=== PATIENT | male | born 1955 | race Caucasian/White ===

== ENCOUNTER 2016-06-17 16:29 | Emergency (ER) | payer OTHER, MEDICAID ==
[~2016-06-17] VITALS: Ht 170.2 cm; Wt 127.0 kg
[~2016-06-17 16:29] MED LIST: ASPIR 8181 M1 PO; BP MED; COREG3.125 MG PO; HUMALOG100 UNITS/ SUBQ; KLOR-CON 88 ME1 PO; LANTUS100 U/ML SUBQ; LASIX40 MG PO; LIPITOR40 MG PO; ZESTRIL5 MG PO
[2016-06-17] MEDS ORDERED: GLUCOPHAGE1000 MG PO (17:23)
[2016-06-17 17:25] VITALS: BP 149/74
--- NOTE | 2016-06-17 17:30 | NUR ---
PT AMBULATED TO ER BED06.
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
[2016-06-17] MEDS ORDERED: IBUPROFEN 800 MG TAB PO ONE (18:30)
[2016-06-17 19:00] VITALS: BP 143/86
== END 2016-06-17 19:02 | disposition home or self-care (01) ==
LOC: MED 16:29
DX: S13.9XXA Sprain of joints and ligaments of unspecified parts of neck, initial encounter (principal); E11.9 Type 2 diabetes mellitus without complications; I10 Essential (primary) hypertension; Z86.73 Personal history of transient ischemic attack (TIA), and cerebral infarction without residual deficits; Z95.9 Presence of cardiac and vascular implant and graft, unspecified; Z79.82 Long term (current) use of aspirin; Z79.899 Other long term (current) drug therapy; V43.52XA Car driver injured in collision with other type car in traffic accident, initial encounter; Y93.89 Activity, other specified; Y92.89 Other specified places as the place of occurrence of the external cause; Y99.8 Other external cause status

== ENCOUNTER 2019-02-23 13:36 | Emergency (ER) | payer MEDICAID, OTHER ==
[~2019-02-23] VITALS: Ht 167.6 cm; Wt 127.5 kg
[~2019-02-23 13:36] MED LIST changes: +ASPI81EC98 PO; -ASPIR 8181 M1 PO; +ATOR40TA PO; -BP MED; +CARV3.12 PO; -COREG3.125 MG PO; +FURO-570 PO; -HUMALOG100 UNITS/ SUBQ; -KLOR-CON 88 ME1 PO; +LANTUS SUBQ; -LANTUS100 U/ML SUBQ; -LASIX40 MG PO; -LIPITOR40 MG PO; +LISI5TAB18 PO; +METF1000 PO; +POTA8TER12 PO; -ZESTRIL5 MG PO
[2019-02-23 13:38] VITALS: BP 130/79
--- NOTE | 2019-02-23 13:45 | NUR ---
PT AMBULATED TO BED 11.
--- NOTE | 2019-02-23 14:00 | NUR ---
C/O R EAR PAIN X2 DAYS 01/31. DENIES INJURY/DRAINAGE/FEVER/LOSS OF HEARING/ N/V. BED IN LOW POSITION, SIDE RAIL UP X1
--- NOTE | 2019-02-23 14:05 | NUR ---
DR. PAGE AT BEDSIDE
[2019-02-23] MEDS ORDERED: LEVOFLOXACIN 500 MG TAB PO ONE (14:10)
[2019-02-23] MEDS ORDERED: KETOROLAC 60 MG/2 ML VIAL IM ONE (14:10)
[2019-02-23 14:46] VITALS: BP 130/79
--- NOTE | 2019-02-23 14:47 | NUR ---
Patient discharged with v/s stable. Written and verbal after care instructions given and explained. Patient alert, oriented and verbalized understanding of instructions. Ambulatory with steady gait. All questions addressed prior to discharge. ID band removed. Patient advised to follow up with PMD. Rx of FIORICET, CORTISPORIN, CIPROFLOXACIN given. Patient educated on indication of medication including possible reaction and side effects. Opportunity to ask questions provided and answered.
== END 2019-02-23 14:47 | disposition home or self-care (01) ==
LOC: MED 13:36
DX: H60.91 Unspecified otitis externa, right ear (principal); R11.0 Nausea; E11.9 Type 2 diabetes mellitus without complications; F03.90 Unspecified dementia, unspecified severity, without behavioral disturbance, psychotic disturbance, mood disturbance, and anxiety; I10 Essential (primary) hypertension; I25.2 Old myocardial infarction; Z86.73 Personal history of transient ischemic attack (TIA), and cerebral infarction without residual deficits; Z98.890 Other specified postprocedural states; Z79.899 Other long term (current) drug therapy; Z79.82 Long term (current) use of aspirin; Z79.84 Long term (current) use of oral hypoglycemic drugs
CPT/HCPCS: 96372; 99283; J1885

== ENCOUNTER 2019-03-20 22:47 | Emergency (ER) | payer OTHER ==
[~2019-03-20] VITALS: Ht 170.2 cm; Wt 87.1 kg
--- NOTE | 2019-03-20 22:49 | NUR ---
PT BIB W/C TO ER BED 5
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
[2019-03-20 22:51] VITALS: BP 118/58
[2019-03-20] MEDS ORDERED: KETOROLAC 60 MG/2 ML VIAL IM ONE (22:55)
--- NOTE | 2019-03-20 22:55 | NUR ---
DR. KNOX BEDSIDE EVALUATING PT
--- NOTE | 2019-03-20 23:15 | NUR ---
PLACED AN FIBERGLASS ANKLE STIRRUP SPLINT ON PT'S RIGHT ANKLE.
[2019-03-20] MEDS ORDERED: MORPHINE SULFATE 4 MG/ML SYR IM ONE (23:50)
[2019-03-21 00:50] LABS: BASOPHILS # (AUTO) 0.1 K/uL (0.00-0.22); BASOPHILS % (AUTO) 0.6 % (0.0-2.0); EOSINOPHILS # (AUTO) 0.3 K/uL (0-0.4); EOSINOPHILS % (AUTO) 3.3 % (0.0-4.0); HEMATOCRIT 34.6 % (36-52); HEMOGLOBIN 11.7 g/dL (12.0-18.0); LYMPHOCYTES # (AUTO) 0.9 K/uL (2.0-11.5); LYMPHOCYTES % (AUTO) 10.9 % (20.5-51.1); MEAN CORPUSCULAR HEMOGLOBIN 31 pg (27-31); MEAN CORPUSCULAR HGB CONC 34 g/dL (33-37); MEAN CORPUSCULAR VOLUME 91.5 fL (80-94); MONOCYTES # (AUTO) 1.1 K/uL (0.8-1.0); MONOCYTES % (AUTO) 12.8 % (1.7-9.3); NEUTROPHILS # (AUTO) 6.2 K/uL (1.8-7.7); NEUTROPHILS % (AUTO) 72.4 % (42.2-75.2); PLATELET COUNT (AUTO) 132 K/uL (140-450); RED BLOOD CELL COUNT(AUTO) 3.79 MIL/uL (4.20-6.10); RED CELL DISTRIBUTION WIDTH 13.9 % (11.6-13.7); WHITE BLOOD COUNT (AUTO) 8.6 K/uL (4.8-10.8)
[2019-03-21 00:59] LABS: ANION GAP 13.3 (8-16); CARBON DIOXIDE 31.7 mmol/L (21-32)
[2019-03-21] MEDS ORDERED: SITA100T8 PO (01:02)
[2019-03-21 01:04] LABS: ALBUMIN 2.7 g/dL (3.4-5.0); TOTAL BILIRUBIN 0.7 mg/dL (0.0-1.0)
[2019-03-21] MEDS ORDERED: LISI-420 PO (01:05)
[2019-03-21] MEDS ORDERED: MORPHINE SULFATE 4 MG/ML SYR IVP ONE ×2 (01:25→05:05)
--- NOTE | 2019-03-21 01:40 | NUR ---
EKG PERFORMED AT BEDSIDE WITH FAMILY MEMBER PRESENT
--- NOTE | 2019-03-21 04:03 | NUR ---
SPOKE WITH ENRRIQUE DIAZ FROM [facility] REGARDING PT AND ADMISSION. ENRRIQUE REQUESTED RESULTS FOR XRAY AND ORDER FOR HEMOGLOBIN A1C.
--- NOTE | 2019-03-21 06:01 | NUR ---
DIRECT CONTACT FOR ENRRIQUE DIAZ CELL #:
--- NOTE | 2019-03-21 06:02 | NUR ---
FOLLOWED UP WITH ENRRIQUE DIAZ. STILL PENDING ON ORTHO DOCTOR PRIOR TO COMPLETE ADMISSION.
--- NOTE | 2019-03-21 06:24 | NUR ---
SPOKE WITH ENRRIQUE DIAZ, STATES UNABLE TO GET A HOLD OF RECEIVING PHYSICIAN AND WILL TRY AGAIN LATER.
--- NOTE | 2019-03-21 06:59 | NUR ---
SPOKE WITH ALESIA DIAZ FROM [facility]. GAVE REPORT REGARDING PT.
--- NOTE | 2019-03-21 07:14 | NUR ---
RECEIVED REPORT FROM JOE ORANTES. INTRODUCED SELF TO PT AT BEDSIDE. PT RESTING COMFORTABLY IN BED.
--- NOTE | 2019-03-21 07:47 | NUR ---
[facility] at bedside for transfer.
--- NOTE | 2019-03-21 07:55 | NUR ---
Patient picked up by EMT to be transferred to [facility]. Vital signs stable upon transfer. ER physician has signed transfer form. Patient or responsible green party has agreed to transfer and signed form. Patient belongings sent with patient. Copy of nursing notes, lab reports, EKG, Physicians Orders and X-rays sent with patient.
[2019-03-21 08:05] VITALS: BP 132/75
== END 2019-03-21 07:55 | disposition short-term general hospital (02) ==
LOC: MED 22:47
DX: S82.891A Other fracture of right lower leg, initial encounter for closed fracture (principal); I10 Essential (primary) hypertension; E11.9 Type 2 diabetes mellitus without complications; F03.90 Unspecified dementia, unspecified severity, without behavioral disturbance, psychotic disturbance, mood disturbance, and anxiety; W01.0XXA Fall on same level from slipping, tripping and stumbling without subsequent striking against object, initial encounter; Y93.89 Activity, other specified; Y92.89 Other specified places as the place of occurrence of the external cause; Y99.8 Other external cause status; Z79.899 Other long term (current) drug therapy; Z79.84 Long term (current) use of oral hypoglycemic drugs; Z79.82 Long term (current) use of aspirin; Z86.59 Personal history of other mental and behavioral disorders; Z98.890 Other specified postprocedural states
CPT/HCPCS: 29515; 36415; 73610; 80053; 82948; 83036; 85025; 93005; 96372; 96374; 96376; 99285; J1885; J2270